=== PATIENT | male | born 1955 | race Caucasian/White ===

== ENCOUNTER → 2021-01-28 | Outpatient (CLI) | payer MEDICARE | LOC: CARD 10:30 | PROVIDERS: ATTEND Internal Medicine Cardiovascular Disease | DX: I08.0 Rheumatic disorders of both mitral and aortic valves (principal); I49.9 Cardiac arrhythmia, unspecified; I10 Essential (primary) hypertension | CPT/HCPCS: 93225; 93226; 93306 ==

== ENCOUNTER → 2021-12-23 | Outpatient (CLI) | payer MEDICARE, OTHER ==
[2021-12-23 15:43] LABS: ALBUMIN 4.3 GM/DL (3.2-4.5); CALCIUM 9.3 MG/DL (8.5-10.1)
[2021-12-23 15:45] LABS: TOTAL PROTEIN 7.1 GM/DL (6.4-8.2)
[2021-12-23 15:47] LABS: BILIRUBIN,TOTAL 0.6 MG/DL (0.1-1.0)
[2021-12-23 15:48] LABS: CREATININE SERUM 1.12 MG/DL (0.60-1.30)
== END ==
LOC: LAB 14:29
PROVIDERS: ATTEND Physician Assistant
DX: E78.2 Mixed hyperlipidemia (principal)
CPT/HCPCS: 36415; 80053; 80061